=== PATIENT | female | born 1945 | race Caucasian/White ===

== ENCOUNTER 2017-10-22 08:24 | Inpatient (IN) | payer OTHER ==
[~2017-10-22] VITALS: Ht 157.5 cm; Wt 98.2 kg
[2017-10-22 09:08] LABS: HEMATOCRIT 42.9 % (36.0-46.0); HEMOGLOBIN 14.3 G/DL (11.9-15.5); MCH 30.4 PG (29.0-34.0); MCHC 33.3 G/DL (30.0-36.0); MCV 91.1 FL (83-99); PLATELET COUNT 220 K/uL (156-360); RBC DIS.WIDTH-CV 14.2 % (11.8-14.6); RBC DIS.WIDTH-SD 47.5 % (39-53); RED BLOOD COUNT 4.71 M/uL (3.80-5.20); WHITE BLOOD COUNT 6.8 K/uL (4.1-10.2)
[2017-10-22 09:20] LABS: ALBUMIN 3.5 g/dL (3.2-4.8); CHLORIDE 105 mEq/L (99-109); POTASSIUM 4.7 mEq/L (3.7-5.4); SODIUM 140 mEq/L (136-147)
[2017-10-22 09:22] LABS: TOTAL PROTEIN 7.6 g/dL (6.4-8.3)
[2017-10-22 09:24] LABS: TOTAL BILIRUBIN 0.6 mg/dL (0.0-1.0)
[2017-10-22 09:26] LABS: ALKALINE PHOSPHATASE 74 IU/L (3-129); CREATININE 1.3 mg/dL (0.6-1.3); GFR ESTIMATE (CALCULATED) 43 mL/min/
[2017-10-22 09:28] LABS: AST (GOT) 194 IU/L (2-34)
[2017-10-22 09:29] LABS: ALT (GPT) 58 IU/L (3-49)
[2017-10-22 09:36] LABS: GLUCOSE 410 mg/dL (70-99)
[2017-10-22 09:37] LABS: UREA NITROGEN (BUN) 38 mg/dL (9-23)
[2017-10-22 09:54] LABS: APPEARANCE CLOUDY ((CLEAR)); BILIRUBIN NEGATIVE; BLOOD LARGE; COLOR YELLOW ((YELLOW)); GLUCOSE (STRIP) >=500; KETONES 5; LEUKOCYTES SMALL; NITRITE POSITIVE; PROTEIN (STRIP) 30; SPECIFIC GRAVITY 1.024 (1.000-1.030); UROBILINOGEN 0.2 MG/DL (0.2-1.0)
[2017-10-22 10:32] LABS: EPITHELIAL CELLS 1+ /HPF; RED BLOOD CELLS 0-5 /HPF (0-5); WHITE BLOOD CELLS 20-30 /HPF (0-5)
[2017-10-22 10:33] LABS: BACTERIA 2+ /HPF; MUCUS 1+ /LPF; OTHER YEAST W/HYPHAE 1+; UCUL ADDED? YES
[2017-10-22 10:34] LABS: AMORPHOUS URATES CRYSTALS 1+
[2017-10-22] MEDS ORDERED: PRAZOSIN HCL5 MG PO (12:01)
[2017-10-22] MEDS ORDERED: TRAZODONE HCL50 MG PO (12:02)
[2017-10-22] MEDS ORDERED: ATORVASTATIN CA40 MG PO (12:04)
[2017-10-22] MEDS ORDERED: ALPRAZOLAM0.5 MG PO (12:05)
[2017-10-22] MEDS ORDERED: GABAPENTIN300 MG PO (12:08)
[2017-10-22] MEDS ORDERED: OXYBUTYNIN CHLOR5 M1 PO (12:09)
[2017-10-22] MEDS ORDERED: LISINOPRIL5 MG PO (12:09)
[2017-10-22] MEDS ORDERED: METFORMIN HCL1000 MG PO (12:09)
[2017-10-22] MEDS ORDERED: LANTUS 3 M100 UNITS1 SC (12:09)
[2017-10-22] MEDS ORDERED: ARIPIPRAZOLE5 MG PO (12:11)
[2017-10-22 12:12] LABS: AMPHETAMINE NEGATIVE (500 ng/mL); BARBITURATES NEGATIVE (200 ng/mL); BENZODIAZEPINES PRESUMPTIVE POSITIVE (150 ng/mL); BUPRENORPHINE NEGATIVE (10 ng/mL); COCAINE NEGATIVE (150 ng/mL); METHADONE NEGATIVE (200 ng/mL); METHAMPHETAMINE NEGATIVE (500 ng/mL); OPIATES (MORPHINE) NEGATIVE (100 ng/mL); OXYCODONE NEGATIVE (100 ng/mL); PHENCYCLIDINE NEGATIVE (25 ng/mL); PROPOXYPHENE NEGATIVE (300 ng/mL); THC CANNABINOIDS NEGATIVE (50 ng/mL); TRICYCLIC ANTIDEPRESSANTS NEGATIVE (300 ng/mL)
[2017-10-22] MEDS ORDERED: ASPIR-LOW81 MG PO (12:12)
[2017-10-22] MEDS ORDERED: MULTI VITAMIN1 EACH PO (12:12)
[2017-10-22] MEDS ORDERED: B COMPLEX #11 EACH PO (12:13)
[2017-10-22 12:47] LABS: BENZODIAZEPINES, URINE SCREEN POSITIVE (200 ng/mL)
[2017-10-22 13:35] VITALS: BP 134/64
[2017-10-22 16:54] VITALS: BP 139/65
[2017-10-22 20:00] VITALS: BP 151/67
[2017-10-22 22:52] VITALS: BP 115/56
[2017-10-23] VITALS (7 sets, daily range): BP systolic 82–109; BP diastolic 50–54
[2017-10-23 05:32] LABS: BASOPHIL (%) 0.3 % (0-1); EOSINOPHIL (%) 0.4 % (0-5); HEMATOCRIT 39.4 % (36.0-46.0); HEMOGLOBIN 12.4 G/DL (11.9-15.5); IMMATURE GRANULOCYTE (%) 0.4 % (0.0-0.7); LYMPHOCYTE COUNT 1.7 K/uL (1.0-2.8); MCH 29.9 PG (29.0-34.0); MCHC 31.5 G/DL (30.0-36.0); MCV 94.9 FL (83-99); MONOCYTE (%) 10.5 % (3-12); MONOCYTE COUNT 0.7 K/uL (0-0.8); NEUTROPHIL (%) 64.4 % (45-76); NEUTROPHIL COUNT 4.5 K/uL (1.8-6.4); PLATELET COUNT 203 K/uL (156-360); RBC DIS.WIDTH-CV 14.5 % (11.8-14.6); RBC DIS.WIDTH-SD 50.5 % (39-53); RED BLOOD COUNT 4.15 M/uL (3.80-5.20); WHITE BLOOD COUNT 7.1 K/uL (4.1-10.2)
[2017-10-23 05:57] LABS: ALBUMIN 3.1 G/DL (3.2-4.8); ALKALINE PHOSPHATASE 57 IU/L (3-129); ALT (GPT) 44 IU/L (3-49); AST (GOT) 124 IU/L (2-34); CHLORIDE 109 MEQ/L (99-109); GFR ESTIMATE (CALCULATED) 28 mL/min/; POTASSIUM 4.3 MEQ/L (3.7-5.4); SODIUM 142 MEQ/L (136-147); TOTAL BILIRUBIN 0.5 MG/DL (0.0-1.0); TOTAL PROTEIN 6.3 G/DL (6.4-8.3); UREA NITROGEN (BUN) 44 mg/dL (9-23)
[2017-10-23 06:00] LABS: CREATININE 1.9 MG/DL (0.6-1.3); GLUCOSE 191 mg/dL (70-99)
[2017-10-23 06:54] LABS: Estimated Average Glucose 255 mg/dL (70-123); HEMOGLOBIN A1c (GLYCOHEMOGLOB) 10.5 % HGB (Below 5.7)
[2017-10-23 18:36] LABS: CHLORIDE 105 MEQ/L (99-109); CREATININE 1.7 MG/DL (0.6-1.3); GFR ESTIMATE (CALCULATED) 32 mL/min/; GLUCOSE 175 mg/dL (70-99); POTASSIUM 4.1 MEQ/L (3.7-5.4); UREA NITROGEN (BUN) 49 mg/dL (9-23)
[2017-10-23 18:39] LABS: SODIUM 134 MEQ/L (136-147)
[2017-10-24] VITALS (7 sets, daily range): BP systolic 97–161; BP diastolic 55–86
[2017-10-24 05:34] LABS: BASOPHIL (%) 0.2 % (0-1); EOSINOPHIL (%) 4.3 % (0-5); EOSINOPHIL COUNT 0.2 K/uL (0-0.3); HEMATOCRIT 41.8 % (36.0-46.0); HEMOGLOBIN 13.3 G/DL (11.9-15.5); IMMATURE GRANULOCYTE (%) 0.2 % (0.0-0.7); LYMPHOCYTE (%) 39.9 % (15-42); MCHC 31.8 G/DL (30.0-36.0); MCV 94.4 FL (83-99); MONOCYTE (%) 7.5 % (3-12); MONOCYTE COUNT 0.4 K/uL (0-0.8); NEUTROPHIL (%) 47.9 % (45-76); NEUTROPHIL COUNT 2.4 K/uL (1.8-6.4); PLATELET COUNT 179 K/uL (156-360); RBC DIS.WIDTH-CV 14.4 % (11.8-14.6); RBC DIS.WIDTH-SD 50.2 % (39-53); RED BLOOD COUNT 4.43 M/uL (3.80-5.20); WHITE BLOOD COUNT 5.1 K/uL (4.1-10.2)
[2017-10-24 05:58] LABS: CHLORIDE 110 MEQ/L (99-109); CREATININE 1.3 MG/DL (0.6-1.3); GFR ESTIMATE (CALCULATED) 43 mL/min/; GLUCOSE 83 mg/dL (70-99); POTASSIUM 4.3 MEQ/L (3.7-5.4); SODIUM 140 MEQ/L (136-147); UREA NITROGEN (BUN) 43 mg/dL (9-23)
[2017-10-24 11:29] LABS: ALKALINE PHOSPHATASE 61 IU/L (3-129); ALT (GPT) 46 IU/L (3-49); AST (GOT) 114 IU/L (2-34); DIRECT BILIRUBIN 0.1 mg/dL (0.0-0.3); TOTAL BILIRUBIN 0.4 MG/DL (0.0-1.0); TOTAL PROTEIN 6.1 G/DL (6.4-8.3)
[2017-10-25 04:29] VITALS: BP 116/57
[2017-10-25 09:12] VITALS: BP 160/72
[2017-10-25 12:45] VITALS: BP 147/87
[2017-10-25 16:15] VITALS: BP 157/78
[2017-10-25 19:28] VITALS: BP 122/58
[2017-10-26 00:34] VITALS: BP 133/61
[2017-10-26 04:09] VITALS: BP 132/60
[2017-10-26 07:25] VITALS: BP 147/63
[2017-10-26 11:25] VITALS: BP 139/64
[2017-10-26 13:46] LABS: CHLORIDE 113 MEQ/L (99-109); POTASSIUM 5.2 MEQ/L (3.7-5.4); SODIUM 140 MEQ/L (136-147); TOTAL BILIRUBIN 0.4 MG/DL (0.0-1.0)
[2017-10-26 13:58] LABS: ALKALINE PHOSPHATASE 68 IU/L (3-129); ALT (GPT) 32 IU/L (3-49); AST (GOT) 50 IU/L (2-34); CREATININE 0.8 MG/DL (0.6-1.3); GFR ESTIMATE (CALCULATED) > 59 mL/min/; GLUCOSE 250 mg/dL (70-99); TOTAL PROTEIN 5.8 G/DL (6.4-8.3); UREA NITROGEN (BUN) 19 mg/dL (9-23)
[2017-10-26 14:07] LABS: HEPATITIS B SURFACE ANTIGEN Nonreactive; HEPATITIS C ANTIBODY Nonreactive
[2017-10-26 14:08] LABS: ANTI-HEPATITIS A VIRUS (IGM) Nonreactive
[2017-10-26 14:09] LABS: ANTI-HEPATITIS B CORE (IGM) Nonreactive
[2017-10-26 16:25] VITALS: BP 158/70
[2017-10-26 20:00] VITALS: BP 160/77
[2017-10-27] VITALS: BP 155/69
[2017-10-27 05:40] VITALS: BP 160/67
[2017-10-27 07:13] LABS: CHLORIDE 112 MEQ/L (99-109); CREATININE 0.8 MG/DL (0.6-1.3); GFR ESTIMATE (CALCULATED) > 59 mL/min/; POTASSIUM 4.5 MEQ/L (3.7-5.4); SODIUM 144 MEQ/L (136-147); UREA NITROGEN (BUN) 19 mg/dL (9-23)
[2017-10-27 07:20] LABS: GLUCOSE 111 mg/dL (70-99)
[2017-10-27 07:53] VITALS: BP 126/60
[2017-10-27 13:05] VITALS: BP 141/67
[2017-10-27 15:20] VITALS: BP 185/82
[2017-10-27] MEDS ORDERED: CEPHALEXIN250 MG PO (16:16)
== END 2017-10-27 17:36 | DRG 689 ==
LOC: EME 08:24 → EDOF 11:22 → 5WEST 11:22 → EDOF 11:22 → ENRESERV 11:37 → 5WEST 13:33
PROVIDERS: Hospitalist; Internal Medicine; Nurse Practitioner Family
DX: N39.0 Urinary tract infection, site not specified (principal); G93.40 Encephalopathy, unspecified; N17.9 Acute kidney failure, unspecified; R32 Unspecified urinary incontinence; R74.0 Nonspecific elevation of levels of transaminase and lactic acid dehydrogenase [LDH]; I10 Essential (primary) hypertension; E11.65 Type 2 diabetes mellitus with hyperglycemia; B96.20 Unspecified Escherichia coli [E. coli] as the cause of diseases classified elsewhere; E78.5 Hyperlipidemia, unspecified; R19.7 Diarrhea, unspecified; E66.9 Obesity, unspecified; R25.1 Tremor, unspecified; F41.9 Anxiety disorder, unspecified; K59.00 Constipation, unspecified; S00.83XA Contusion of other part of head, initial encounter; W06.XXXA Fall from bed, initial encounter; Z79.4 Long term (current) use of insulin; Y92.009 Unspecified place in unspecified non-institutional (private) residence as the place of occurrence of the external cause; Z68.39 Body mass index [BMI] 39.0-39.9, adult
CPT/HCPCS: 70450; 71010; 80048; 80048 91; 80053; 80074; 80076; 81003; 82948; 83036; 84999; 85025; 85027; 87077; 87086; 87186; 87493; 87506; 93005; 94799; 97530 GO; 97530 GP; 99281; 99285; G0378; G8978 GP CJ; G8979 GP CI; G8987 GO CJ; G8988 GO CH; J0696; J1644; J1815; J2405; J7030